=== PATIENT | female | born 1995 | race Caucasian/White ===

== ENCOUNTER 2024-10-06 20:35 | Emergency (ER) | payer MEDICAID, SELFPAY ==
[2024-10-06 20:37] VITALS: BMI 34.4
[2024-10-06 21:05] VITALS: BP 117/84; PULSE 64; RESP 18; TEMP 36.7; O2SAT 98
--- NOTE | 2024-10-06 21:08 | EDRME_ITS ---
Rapid Medical Screening Exam RME Arrival date/time: 10/06/24 20:35 Chief Complaint: Chest Pain Time Seen by Provider: 10/06/24 21:03 Vital signs: Vital Signs Temperature 98.1 F 10/06/24 21:05 Pulse Rate 64 10/06/24 21:05 Respiratory Rate 18 10/06/24 21:05 Blood Pressure 117/84 10/06/24 21:05 Pulse Oximetry (%) 98 10/06/24 21:05 Oxygen Delivery Method Room Air 10/06/24 21:05 [facility] Narrative: Chest pain, dizziness x1 hour. Also right ankle pain since yesterday
--- NOTE | 2024-10-06 21:09 | EKG_ITS ---
[facility] Test Date: 2024-10-06 Pat Name: THERESE RICKS Department: Room: - Gender: Female Green Chainer: : 1995 Requested By: Samy De Jesus Order Number: [id number] Reading MD: Samy De Jesus Measurements Intervals [place] Rate: 62 P: 30 OK: 166 QRS: 47 QRSD: 104 T: 25 QT: 349 QTc: 357 Interpretive Statements SINUS RHYTHM LOW QRS VOLTAGE IN PRECORDIAL LEADS [QRS DEFLECTION < 1.0 mV IN CHEST LEADS] POSSIBLE ANTERIOR MYOCARDIAL INFARCTION , PROBABLY OLD [30 ms Q WAVE IN V3/V4, OR R < 0.2 mV IN V4] No previous ECG available for comparison /store/S0/[id number]/ecg/[id number]
--- NOTE | 2024-10-06 21:09 | XR_ITS ---
EXAMINATION: Ankle, right 3 views . Technique: Ankle AP, oblique, lateral 3 views Date and time of exam: October 06, 2024 2137 hours INDICATIONS: Twisting injury to the ankle today, ankle pain. FINDINGS: Acute fracture base fifth metatarsal, no significant displacement IMPRESSION: Acute fracture base fifth metatarsal
--- NOTE | 2024-10-06 21:09 | XR_ITS ---
Examination: PA chest single view TECHNIQUE: Upright PA chest single view Date and time: October 06, 2024 2130 hours INDICATIONS: Shortness of breath chest pressure beginning 2 days ago. FINDINGS: Normal heart size Obscuration detail left hemidiaphragm consistent with early pneumonia Right lung clear external osseous structures intact IMPRESSION: Suspicious for early left base pneumonia
[2024-10-06 21:37] LABS: Collection Type, Urine Clean Catch
[2024-10-06 21:56] LABS: Basophils # (Auto) 0.1 Thou/mm3 (0.0-0.2); Basophils % (Auto) 1 % (0-2.5); Eosinophils # (Auto) 0.2 Thou/mm3 (0.0-0.5); Eosinophils % (Auto) 3 % (0-10); Hematocrit 35.7 % (36.0-46.0); Hemoglobin 12.4 g/dL (12.0-16.0); Immature Granulocytes % (Auto) 0 % (0-0); Immature Granulocytes Auto 0.02 Thou/mm3 (0.00-0.00); Lymphocytes # (Auto) 2.2 Thou/mm3 (1.0-4.8); Lymphocytes % (Auto) 34 % (10-50); Mean Corpuscular HGB Conc 34.7 g/dl (31.0-37.0); Mean Corpuscular Hemoglobin 33.7 pg (25.0-35.0); Mean Corpuscular Volume 97 fL (80-100); Monocytes # (Auto) 0.3 Thou/mm3 (0.0-0.8); Monocytes % (Auto) 5 % (0-12); Neutrophils # (Auto) 3.6 Thou/mm3 (1.8-7.7); Neutrophils % (Auto) 57 % (37-80); Nucleated Red Blood Cell % 0 /100 WBC (0); Platelet Count 194 Thou/mm3 (140-440); Red Blood Count 3.68 Miln/mm3 (4.00-5.20); White Blood Count 6.4 Thou/mm3 (3.6-11.0)
[2024-10-06 21:59] LABS: B-Type Natriuretic Peptide < 20 pg/mL (0-100)
[2024-10-06 22:01] LABS: HCG Qualitative,Urine Negative
[2024-10-06 22:01] LABS: Alanine Aminotransferase 29 U/L (10-49); Albumin, Serum 4.7 gm/dL (3.5-5.0); Albumin/Globulin Ratio 1.6 (1.2-2.2); Alkaline Phosphatase 52 U/L (46-116); Anion Gap 9 (7-16); Aspartate Amino Transferase 78 U/L (0-34); BUN/Creatinine Ratio 7 Ratio (12-20); Bilirubin,Total 1.2 mg/dL (0.3-1.2); Blood Urea Nitrogen 10 mg/dL (9-23); Calcium 8.7 mg/dL (8.3-10.6); Calcium (Corrected) 8.7 mg/dL (8.5-10.1); Carbon Dioxide 26.6 mMol/L (20.0-31.0); Chloride 104 mMol/L (98-107); Creatinine (Component) 1.4 mg/dL (0.6-1.3); Estimated Creatinine Clearance 73.8 mL/min (>60); Globulin 2.9 gm/dL (2.3-3.5); Glucose 102 mg/dL (74-106); Osmolality,Calculated 278 (275-295); Potassium 3.5 mMol/L (3.4-5.1); Sodium 140 mMol/L (136-145); Total Protein 7.6 gm/dL (5.7-8.2); Troponin I < 0.002 ng/mL (0.0-0.045); eGFR 52 See Note
[2024-10-06 22:04] LABS: Bacteria,Urine Rare; Bilirubin,Urine Negative (Negative); Blood,Urine 3+ (Negative); Clarity,Urine Clear (Clear/Hazy); Color,Urine Colorless (Lt Yel-Yel); Glucose, Urine Negative (Negative); Ketones,Urine Negative (Negative); Leukocyte Esterase,Urine Positive (Negative); Nitrite,Urine Negative (Negative); PH,Urine 6.5 (5.0-7.0); Protein,Urine Negative (Neg - Trace); RBC,Urine 10 /hpf (0-3); Specific Gravity,Urine 1.008 (1.001-1.035); Squamous Epithelial Cell,Urine 8 /hpf (0-5); Urobilinogen,Urine Negative mg/dL (0.0-1.0); WBC,Urine 57 /hpf (0-5)
[2024-10-06 22:06] LABS: Amphetamine/Methamp Scrn,U Negative (Negative); Barbiturate Screen,Urine Negative (Negative); Benzodiazepines Screen,Urine Negative (Negative); Benzoylecgonine Screen, Ur Negative (Negative); Fentanyl Screen,Urine Negative (Negative); Opiate Screen,Urine Negative (Negative); THC Screen,Urine Negative (Negative)
[2024-10-07 00:21] LABS: Troponin I < 0.002 ng/mL (0.0-0.045)
--- NOTE | 2024-10-07 00:33 | EDNOTE_ITS ---
ED Chest Pain RME/HPI General Chief Complaint: Chest Pain Stated Complaint: CHEST PAIN X 1 HOUR Time Seen by Provider: 10/06/24 21:03 Arrival date/time: 10/06/24 20:35 RME / HPI RME / HPI narrative: Chest pain, dizziness x1 hour. Also right ankle pain since yesterday Dr. Dunham?s Main ED Evaluation: 29yo female with a history of hypotension, anemia presents to the ED for complaints of dizziness and chest pain x 1 hour [employer]. Patient states she started feeling dizzy and lightheaded, reporting she developed chest pain, was mumbling, and felt impending doom, so she came in for evaluation. Patient also complains of having right foot pain since yesterday after she tripped and fell over her children's toys. Patient denies any shortness of breath, fever, chills, headache, neck pain, abdominal pain or any other associated symptoms. Patient notes she went to [facility] yesterday after she fell, but states they did not perform x-rays due to the parking enforcement technician not being there. Related Data Home Medications ?Medication ?Instructions ?Recorded ?Confirmed frzpednf-vhk-Jh-FA 1 mg 1 tab PO QDAY 2 07/19/22 tablet Previous Rx's ?Medication ?Instructions ?Recorded docusate sodium 100 mg capsule 100 mg PO BID #60 caps 07/20/22 (Colace) ibuprofen 800 mg tablet 800 mg PO Q6H PRN pain #90 t abs 07/20/22 lanolin 50 % topical ointment 1 applic topical TID PRN skin 07/20/22 irritation #15 tubes nitrofurantoin 100 mg PO BID Urinary tract 10/07/24 monohydrate/macrocrystals 100 mg infection 7 days #14 caps capsule (Macrobid) Allergies Allergy/AdvReac Type Severity Reaction Status Date / Time amoxicillin Allergy Intermediate Hives Verified 07/19/22 20:49 Penicillins Allergy Intermediate Hives Verified 07/19/22 20:49 Review of Systems Review of Systems Systems Reviewed: All systems reviewed, normal except as documented Past Medical History Past Medical History NEUROLOGIC: Negative Neurological Disorders CARDIAC: Negative Cardiac Disorders or Congestive Heart Failure RESPIRATORY: Negative Chronic Obstructive Pulmonary Disease (COPD) GASTROINTESTINAL: Positive Gastrointestinal Disorders and Obesity; Negative Hepatitis or Colorectal Cancer GENITOURINARY: Negative Genitourinary Disorders, Renal Disease or Prostate Cancer REPRODUCTIVE: Positive Gonorrhea and Previous Pregnancies; Negative Breast Cancer, Endometriosis, Pelvic Inflammatory Disease, Testicular Cancer or Uterine Prolapse MUSCULOSKELETAL: Positive Fractures (right wrist); Negative Musculoskeletal Disorders or Bone Cancer ENDOCRINE: Negative Endocrine Disorders, Diabetes Mellitus Type 1 or Diabetes Mellitus Type 2 HEMATOLOGIC: Positive Blood Disorders and Anemia PSYCHO/SOCIAL: Positive Depression (2019) OTHER HISTORY: Positive Chicken Pox; Negative Hospitalization, Autoimmune Disease, Down Syndrome, Developmental Delay, Shingles, Falls, Blood Transfusions, Blood Transfusion Reaction, Anesthesia Reactions, Organ Transplant, Chemotherapy, Radiation Therapy, Hyperbaric Therapy, MRSA, VRSA, Vancomycin-Resistant Enterococci, Human Immunodeficiency Virus (HIV), Measles, Mumps, Rubella (Gibraltarian Measles), Pertussis, Clostridium Difficile, Cancer, Breast Cancer, Cervical Cancer, Colorectal Cancer, Lung Cancer, Ovarian Cancer, Prostate Cancer or Testicular Cancer Family History FAMILY HISTORY: Positive Family Cardiac Disorders (mother-HTN. grandmother-heart surgery), Family Gastrointestinal Problems (mother-gallbladder), Family Cancer (mother, father, grandfather) and Family Surgery (grandmother, mother); Negative Family Psychiatric Problems, Family Respiratory Disorders or Family Anesthesia Reaction Surgical History SURGICAL: Negative Section or Organ Transplant Social History SMOKING STATUS: Never smoker ED Exam Narrative Physical exam: GENERAL APPEARANCE: alert and oriented x 4, well-developed, well-nourished, no acute distress VITALS: All vitals were reviewed and the pulse ox is 98% on room air, which is normal according to my interpretation. HEENT: Normocephalic, atraumatic; pupils equal, round, reactive to light; EOMI; mucous membranes pink, moist; oropharynx clear NECK: Supple LUNGS: CTABL; no wheezes, no rales, no rhonchi HEART: Regular rate, regular rhythm; normal S1, S2; no murmurs ABDOMEN: non distended; normal BS; soft, no tenderness, no guarding, no rebound; no masses, no organomegaly, no hernia BACK: no CVA tenderness EXTREMITIES: swelling and ecchymosis to the right foot and ankle NEUROLOGIC: awake; alert and oriented x4; cranial nerves II-XII grossly intact; no focal sensory or motor deficits PSYCHIATRIC: appropriate mood and affect SKIN: warm, dry, normal color; no rashes Course Quality Measures none Orders Category Date Time Status EKG (ED ONLY) *Do not use* NOW Care 10/06/24 21:10 Completed Miscellaneous Nursing Order NOW Care 10/07/24 00:36 Active CXR [XR chest 1V] Stat Exams 10/06/24 21:09 Completed EKG (ED Only) Stat Exams 10/06/24 21:09 Draft XR ankle comp RT min 3V Stat Exams 10/06/24 21:09 Completed BNP [B-Type Natriuretic Peptide] Stat Lab 10/06/24 21:27 Completed CBC Stat Lab 10/06/24 21:27 Completed CMP [Comprehensive Metabolic Panel] Stat Lab 10/06/24 21:27 Completed Drug Screen,Urine Stat Lab 10/06/24 21:29 Completed HCG Qualitative,Urine Stat Lab 10/06/24 21: Completed Troponin I Stat Lab 10/06/24 21:27 Completed Troponin I Stat Lab 10/06/24 23:47 Completed UA [Urinalysis] Stat Lab 10/06/24 21:29 Completed Vital Signs Vital signs: Vital Signs Temperature 98.1 F 10/06/24 21:05 Pulse Rate 64 10/06/24 21:05 Respiratory Rate 18 10/06/24 21:05 Blood Pressure 117/84 10/06/24 21:05 Pulse Oximetry (%) 98 10/06/24 21:05 Oxygen Delivery Method Room Air 10/06/24 21:05 Chest Pain MDM Narrative MDM Narrative:: Scribe Attestation: 10/07/24 Dena Mora am scribing for and in the presence of Dr. Dunham. Discussed results with the patient. Patient was offered something for anxiety, which she declined. Walking boot ordered due to the patient's right fifth metatarsal fracture. I sent a prescription for Macrobid to the patient's pharmacy due to her UTI. Patient is stable to be discharged home. Patient data External records reviewed:: [facility] previous records (Per EMR review, patient has no previous ED visits or admissions to this facility.) Clinical information provided by:: patient Social determinants that could affect healthcare access:: none Patient has the following chronic illnesses:: none How is presenting disease/condition affected by chronic disease/condition?: no chronic disease Evaluation data The following diagnostics were reviewed and interpreted by me:: lab results and radiology exam(s) Lab and/or radiology exams considered but not ordered:: none Interpretation Summary: CBC is normal, CMP is normal, BNP is normal, Initial and Repeat Troponins are normal, HCG is negative, UA is positive for a UTI, UDS is negative, according to my interpretation. CXR shows normal cardiac silhouette, normal sharp diaphragmatic edge, no infiltrates, normal costophrenic angles, according to my interpretation. EKG done at 2119, NSR, rate of 62, normal axis, no ectopy, no acute ischemia, according to my interpretation. [place] [facility] Report Signed Patient: THERESE RICKS [facility]. Record#: [id number] Birthdate: 1995 Age/Sex: 29 / F Location: [facility] Attending Dr: Ordering Physician: Samy De Jesus PA-C Date of Service: 10/06/24 Procedure(s): XR ankle comp RT min 3V Accession Number(s): [id number] cc: Cj Smith MD; Samy De Jesus PA-C~ EXAMINATION: Ankle, right 3 views . Technique: Ankle AP, oblique, lateral 3 views Date and time of exam: October 06, 2024 2137 hours INDICATIONS: Twisting injury to the ankle today, ankle pain. FINDINGS: Acute fracture base fifth metatarsal, no significant displacement IMPRESSION: Acute fracture base fifth metatarsal Dictated By: Cj Smith MD Signed By: <Electronically signed by Cj Smith MD in OV> 10/06/24 2146 Medications / Prescriptions Medications or Prescriptions considered but not ordered:: none Medication administrations:: see above, if any Consultations Consultation(s) initiated? (list below): No Diagnosis Chest Pain Differential Diagnosis: other (foot fracture, foot dislocation, contusion, abrasion, STEMI, NSTEMI, anxiety reaction, chest wall pain) Most likely diagnosis given after review of the tests above:: see clinical impression below Admission Indicated Admission indicated?: not indicated Admission Request Was there a request for admission?: No Disposition Plan Disposition Plan: Discharge Discharge Attestation Discharge Attestation: The patient and all family members were given an opportunity to ask questions and understood the discharge instructions. Discharge instructions specifically effects, indications for sooner follow up or return to the emergency department, and the expected course of current diagnosis. Patient condition: Stable Discharge Plan Plan Patient Disposition: HOME (Self Care) Discharge Disposition comment: Stable for discharge home Patient condition on transfer: Stable Prescriptions/Referrals Prescriptions/Med Rec: New nitrofurantoin monohyd/m-cryst [Macrobid] 100 mg capsule 100 mg PO BID 7 Days Qty: 14 0RF Rx Instructions: must administer with a meal/food No Action ibuprofen 800 mg tablet 800 mg PO Q6H MDD 4 PRN (Reason: pain) Qty: 90 0RF docusate sodium [Colace] 100 mg capsule 100 mg PO BID Qty: 60 0RF lanolin 50 % ointment 1 applic topical TID PRN (Reason: skin irritation) Qty: 15 0RF txhumlxr-oox-Xr-FA 1 mg Tablet 1 tab PO QDAY Referrals: [facility] [Provider Group] - In 1 week Genaro Varghese MD [Primary Care Provider] - In 1 week Problem List Clinical Impression: [place] fracture, Urinary tract infection, Anxiety reaction Patient/Caregiver Discharge Instructions Discharge Activity: activity as tolerated Education Materials: Urinary Tract Infections in Women, ED Anxiety Reaction, ED Fracture, Foot Additional Instructions: Please return to the emergency department if you have any worsening or any further medical problems and we will help you. Otherwise you should follow-up with your primary care doctor or in the [facility] care clinic within the next several days. There are antibiotics waiting for you at your pharmacy. Please take 1 pill twice per day for the full 7 days until they are completely gone. Print Language: Kyrgyz Stand Alone Forms: [employer] Award Info., Patient Portal Info Letter
== END 2024-10-07 01:35 | disposition home or self-care (01) ==
PROVIDERS: Physician Assistant; Emergency Provider Emergency Medicine; PCP Family Medicine
DX: S92.351A Displaced fracture of fifth metatarsal bone, right foot, initial encounter for closed fracture (principal); W01.0XXA Fall on same level from slipping, tripping and stumbling without subsequent striking against object, initial encounter; N39.0 Urinary tract infection, site not specified; F41.1 Generalized anxiety disorder; R07.9 Chest pain, unspecified
CPT/HCPCS: 36415; 71045; 73610; 80053; 80307; 81001; 81025; 83880; 84484; 85025; 93005; 99283

== ENCOUNTER 2025-02-28 20:33 | Emergency (ER) | payer MEDICAID, SELFPAY ==
[2025-02-28 20:37] VITALS: BMI 34.0
[2025-02-28 20:43] VITALS: BP 124/78; PULSE 61; PULSE 88; RESP 18; RESP 20; TEMP 36.8; O2SAT 100; O2SAT 97
--- NOTE | 2025-02-28 21:21 | EDNOTE_ITS ---
ED Anxiety RME/HPI General Chief Complaint: Anxiety Stated Complaint: NEAR SYNCOPE/SOB Time Seen by Provider: 02/28/25 21:20 Arrival date/time: 02/28/25 20:33 RME / HPI RME / HPI narrative: Dr. Perez?s Main ED Evaluation: 29yo female with a history of anemia, hypothyroidism (off of medications) BIBA from home presenting with lightheadedness/dizziness, shortness of breath, and intermittent palpitations throughout the day. Also noted left temporoparietal headache with radiation to the left shoulder. No chest pain, frequency, urgency, or dysuria. LMP is current. PMH includes anemia, hypothyroidism, hypotension, elevated cholesterol, anxiety, depression. PSH includes D&C. Patient vapes, but no alcohol or illicit drug use. Related Data Home Medications ?Medication ?Instructions ?Recorded ?Confirmed fgipmriv-buj-Bp-FA 1 mg 1 tab PO QDAY 2 2 07/19/22 tablet Previous Rx's ?Medication ?Instructions ?Recorded docusate sodium 100 mg capsule 100 mg PO BID #60 caps 07/20/22 (Colace) ibuprofen 800 mg tablet 800 mg PO Q6H PRN pain #90 t abs 07/20/22 lanolin 50 % topical ointment 1 applic topical TID PRN skin 07/20/22 irritation #15 tubes Allergies Allergy/AdvReac Type Severity Reaction Status Date / Time amoxicillin Allergy Intermediate Hives Verified 07/19/22 20:49 Penicillins Allergy Intermediate Hives Verified 07/19/22 20:49 Review of Systems Review of Systems Systems Reviewed: All systems reviewed, normal except as documented Past Medical History Past Medical History NEUROLOGIC: Negative Neurological Disorders CARDIAC: Negative Cardiac Disorders or Congestive Heart Failure RESPIRATORY: Negative Chronic Obstructive Pulmonary Disease (COPD) GASTROINTESTINAL: Positive Gastrointestinal Disorders and Obesity; Negative Hepatitis or Colorectal Cancer GENITOURINARY: Negative Genitourinary Disorders, Renal Disease or Prostate Cancer REPRODUCTIVE: Positive Gonorrhea and Previous Pregnancies; Negative Breast Cancer, Endometriosis, Pelvic Inflammatory Disease, Testicular Cancer or Uterine Prolapse MUSCULOSKELETAL: Positive Fractures; Negative Musculoskeletal Disorders or Bone Cancer ENDOCRINE: Negative Endocrine Disorders, Diabetes Mellitus Type 1 or Diabetes Mellitus Type 2 HEMATOLOGIC: Positive Blood Disorders and Anemia PSYCHO/SOCIAL: Positive Anxiety and Depression OTHER HISTORY: Positive Chicken Pox; Negative Hospitalization, Autoimmune Disease, Down Syndrome, Developmental Delay, Shingles, Falls, Blood Transfusions, Blood Transfusion Reaction, Anesthesia Reactions, Organ Transplant, Chemotherapy, Radiation Therapy, Hyperbaric Therapy, MRSA, VRSA, Vancomycin-Resistant Enterococci, Human Immunodeficiency Virus (HIV), Measles, Mumps, Rubella (Hungarian Measles), P ertussis, Clostridium Difficile, Cancer, Breast Cancer, Cervical Cancer, Colorectal Cancer, Lung Cancer, Ovarian Cancer, Prostate Cancer or Testicular Cancer Family History FAMILY HISTORY: Positive Family Cardiac Disorders, Family Gastrointestinal Problems, Family Cancer and Family Surgery; Negative Family Psychiatric Problems, Family Respiratory Disorders or Family Anesthesia Reaction Surgical History SURGICAL: Negative Section or Organ Transplant Social History SMOKING STATUS: Never smoker ED Exam Narrative Physical exam: GENERAL APPEARANCE: alert and oriented x 4, well-developed, well-nourished, nontoxic, no acute distress VITALS: All vitals were reviewed and the pulse ox is 100% on room air, which is normal according to my interpretation. HEENT: Normocephalic, atraumatic; pupils equal, round, reactive to light; EOMI; mucous membranes pink, moist; oropharynx clear NECK: Supple LUNGS: CTABL; no wheezes, no rales, no rhonchi HEART: Regular rate, regular rhythm; normal S1, S2; no murmurs ABDOMEN: non distended; normal BS; soft, no tenderness, no guarding BACK: no CVA tenderness EXTREMITIES: atraumatic; no edema NEUROLOGIC: awake; alert and oriented x4; cranial nerves II-XII grossly intact; no focal sensory or motor deficits PSYCHIATRIC: appropriate mood and affect SKIN: warm, dry, slightly pale; no rashes Course Quality Measures none Vital Signs Vital signs: Vital Signs Temperature 98.3 F 02/28/25 20:43 Pulse Rate 61 02/28/25 20:43 Respiratory Rate 18 02/28/25 20:43 Blood Pressure 124/78 02/28/25 20:43 Pulse Oximetry (%) 100 02/28/25 20:43 Oxygen Delivery Method Room Air 02/28/25 20:43 Anxiety MDM Narrative MDM Narrative: Scribe Attestation: 02/28/25 Dena Mora am scribing for and in the presence of Dr. Perez. 29yo female with a history of anemia, hypothyroidism (off of medications) BIBA from home presenting with lightheadedness/dizziness, shortness of breath, and intermittent palpitations throughout the day. Also noted left temporoparietal headache with radiation to the left shoulder. Please see PE findings. Laboratory markers including CBC and chemistries were unremarkable. CXR unremarkable. EKG demonstrates sinus bradycardia without any ST-T changes. Patient was observed for an extended period of time and remained stable. Will recommend f/u with PMD for cardiology referral for consideration of remote heart monitoring. Precautionary instructions issued. Patient data External records reviewed:: [facility] previous records (Per chart review, patient was seen here on 10/07/24 for anxiety.) and EMS form Clinical information provided by:: patient Social determinants that could affect healthcare access:: mental health Patient has the following chronic illnesses:: anxiety How is presenting disease/condition affected by chronic disease/condition?: caused by Evaluation data The following diagnostics were reviewed and interpreted by me:: lab results, radiology exam(s) and EKG tracing(s) Lab and/or radiology exams considered but not ordered:: none Interpretation Summary: EKG done at 2317, sinus bradycardia, rate of 47, no ectopy or high grade AV block, low voltage across the precordium, no acute ST or T pathological changes, according to my interpretation. [place] [facility] Report Signed Patient: THERESE RICKS [facility]. Record#: [id number] Birthdate: 1995 Age/Sex: 29 / F Location: [facility] Attending Dr: Ordering Physician: Palomo Jones DO Date of Service: 02/28/25 Procedure(s): XR chest 1V portable Accession Number(s): [id number] cc: Palomo Jones DO; Genaro Varghese MD; Cj Smith MD~ EXAMINATION: AP chest single view TECHNIQUE: AP portable upright chest single view Date and time: February 28, 2025, 2152 hours, comparison October 06, 2024 INDICATION: Weakness shortness of breath syncope today FINDINGS: Normal heart size The lungs are clear. The osseous structures are intact IMPRESSION: No active disease Dictated By: Cj Smith MD Signed By: <Electronically signed by Cj Smith MD in OV> 02/28/25 2210 Medications / Prescriptions Medications or Prescriptions considered but not ordered:: none Medication administrations:: none Consultations Consultation(s) initiated? (list below): No Diagnosis Differential diagnosis anxiety: other (anemia, dehydration, electrolyte abnormality, arrhythmia) Most likely diagnosis given after review of the tests above:: see clinical impression below Admission Indicated Admission indicated?: not indicated Admission Request Was there a request for admission?: No Disposition Plan Disposition Plan: Discharge Discharge Attestation Discharge Attestation: The patient and all family members were given an opportunity to ask questions and understood the discharge instructions. Discharge instructions specifically effects, indications for sooner follow up or return to the emergency department, and the expected course of current diagnosis. Patient condition: Stable Discharge Plan Plan Patient Disposition: HOME (Self Care) Discharge Disposition comment: Stable Prescriptions/Referrals Prescriptions/Med Rec: No Action ibuprofen 800 mg tablet 800 mg PO Q6H MDD 4 PRN (Reason: pain) Qty: 90 0RF docusate sodium [Colace] 100 mg capsule 100 mg PO BID Qty: 60 0RF lanolin 50 % ointment 1 applic topical TID PRN (Reason: skin irritation) Qty: 15 0RF tqwynrxr-pqt-Ep-FA 1 mg Tablet 1 tab PO QDAY Referrals: Genaro Varghese MD [Primary Care Provider, Family Practice] - In 1 week Problem List Clinical Impression: Heart palpitations Impression comment: Palpitations Patient/Caregiver Discharge Instructions Discharge Activity: activity as tolerated Education Materials: ED Palpitations Additional Instructions: Increase fluids. Avoid excessive caffeine, stimulants and follow up w/ [employer]ty Insurance Claim Adjuster for consideration of remote heart monitoring Print Language: Sinhala Stand Alone Forms: [employer] Award Info., Patient Portal Info Letter
--- NOTE | 2025-02-28 21:30 | XR_ITS ---
EXAMINATION: AP chest single view TECHNIQUE: AP portable upright chest single view Date and time: February 28, 2025, 2152 hours, comparison October 06, 2024 INDICATION: Weakness shortness of breath syncope today FINDINGS: Normal heart size The lungs are clear. The osseous structures are intact IMPRESSION: No active disease
--- NOTE | 2025-02-28 21:30 | EKG_ITS ---
[facility] Test Date: 2025-02-28 Pat Name: THERESE RICKS Department: Room: - Gender: Female Lemon Picker: : [id number] Requested By: Palomo Arzola Order Number: [id number] Reading MD: Palomo Arzola Measurements Intervals [place] Rate: 47 P: 55 MT: 176 QRS: 65 QRSD: 106 T: 45 QT: 416 QTc: 370 Interpretive Statements SINUS BRADYCARDIA LOW QRS VOLTAGE IN PRECORDIAL LEADS [QRS DEFLECTION < 1.0 mV IN CHEST LEADS] INCOMPLETE RIGHT BUNDLE BRANCH BLOCK [90+ ms QRS DURATION, TERMINAL R IN V1/V2, 40+ ms S IN I/aVL/V4/V5/V6] NONSPECIFIC T-WAVE ABNORMALITY Compared to ECG 10/06/2024 21:19:26 Incomplete right bundle-branch block now present T-wave abnormality now present Sinus rhythm no longer present Myocardial infarct finding no longer present /store/S0/[id number]
[2025-02-28 22:06] LABS: Collection Type, Urine Clean Catch
[2025-02-28 22:07] LABS: Basophils # (Auto) 0.1 Thou/mm3 (0.0-0.2); Basophils % (Auto) 1 % (0-2.5); Eosinophils # (Auto) 0.2 Thou/mm3 (0.0-0.5); Eosinophils % (Auto) 3 % (0-10); Hematocrit 33.9 % (36.0-46.0); Hemoglobin 11.9 g/dL (12.0-16.0); Immature Granulocytes Auto 0.02 Thou/mm3 (0.00-0.00); Lymphocytes # (Auto) 1.8 Thou/mm3 (1.0-4.8); Lymphocytes % (Auto) 32 % (10-50); Mean Corpuscular HGB Conc 35.1 g/dl (31.0-37.0); Mean Corpuscular Hemoglobin 33.9 pg (25.0-35.0); Mean Corpuscular Volume 97 fL (80-100); Monocytes # (Auto) 0.4 Thou/mm3 (0.0-0.8); Monocytes % (Auto) 6 % (0-12); Neutrophils # (Auto) 3.3 Thou/mm3 (1.8-7.7); Neutrophils % (Auto) 57 % (37-80); Nucleated Red Blood Cell # 0.00 Thou/mm3 (0.00-0.00); Nucleated Red Blood Cell % 0 /100 WBC (0); Platelet Count 180 Thou/mm3 (140-440); RDW Standard Deviation 45.1 fL (36.4-46.3); Red Blood Count 3.51 Miln/mm3 (4.00-5.20); White Blood Count 5.8 Thou/mm3 (3.6-11.0)
[2025-02-28 22:13] LABS: Bacteria,Urine Rare; Bilirubin,Urine Negative (Negative); Blood,Urine 3+ (Negative); Budding Yeast,Urine Present; Clarity,Urine Turbid (Clear/Hazy); Color,Urine Colorless (Lt Yel-Yel); Glucose, Urine Negative (Negative); Ketones,Urine Negative (Negative); Leukocyte Esterase,Urine Positive (Negative); Nitrite,Urine Negative (Negative); PH,Urine 6.5 (5.0-7.0); Protein,Urine Negative (Neg - Trace); RBC,Urine 10 /hpf (0-3); Specific Gravity,Urine 1.008 (1.001-1.035); Squamous Epithelial Cell,Urine 10 /hpf (0-5); Urobilinogen,Urine Negative mg/dL (0.0-1.0); WBC,Urine 33 /hpf (0-5)
[2025-02-28 22:17] LABS: Amphetamine/Methamp Scrn,U Negative (Negative); Barbiturate Screen,Urine Negative (Negative); Benzodiazepines Screen,Urine Negative (Negative); Benzoylecgonine Screen, Ur Negative (Negative); Fentanyl Screen,Urine Negative (Negative); Opiate Screen,Urine Negative (Negative); THC Screen,Urine Negative (Negative)
[2025-02-28] MEDS: SODIUM CHLORIDE 0.9% 1000 ML 1,000 ML 999 ML IV (22:33)
[2025-02-28 22:38] LABS: AFP Non-Pregnant 2.50 ng/mL (<8.10)
[2025-02-28 22:40] LABS: Alanine Aminotransferase 22 U/L (10-49); Albumin, Serum 4.7 gm/dL (3.5-5.0); Albumin/Globulin Ratio 3.1 (1.2-2.2); Alkaline Phosphatase 41 U/L (46-116); Anion Gap 10 (7-16); Aspartate Amino Transferase 54 U/L (0-34); BUN/Creatinine Ratio 7 Ratio (12-20); Beta HCG,Quantitative < 0 mIU/mL (<5.0); Bilirubin,Total 1.2 mg/dL (0.3-1.2); Blood Urea Nitrogen 8 mg/dL (9-23); Calcium 9.6 mg/dL (8.3-10.6); Calcium (Corrected) 9.6 mg/dL (8.5-10.1); Carbon Dioxide 26.7 mMol/L (20.0-31.0); Chloride 104 mMol/L (98-107); Creatinine (Component) 1.2 mg/dL (0.6-1.3); Estimated Creatinine Clearance 85.5 mL/min (>60); Globulin 1.5 gm/dL (2.3-3.5); Glucose 93 mg/dL (74-106); Magnesium 2.0 mg/dL (1.6-2.6); Osmolality,Calculated 279 (275-295); Potassium 3.4 mMol/L (3.4-5.1); Sodium 141 mMol/L (136-145); Total Protein 6.2 gm/dL (5.7-8.2); Troponin I < 0.002 ng/mL (0.0-0.045); eGFR > 60 See Note
[2025-02-28 23:25] VITALS: BP 107/72; BP 93/76; PULSE 48; PULSE 53; PULSE 58
[2025-03-01 00:09] VITALS: BP 99/73; PULSE 49; RESP 18; O2SAT 98
== END 2025-03-01 00:11 | disposition home or self-care (01) ==
PROVIDERS: Emergency Provider Emergency Medicine; PCP Family Medicine
DX: R55 Syncope and collapse (principal); R00.2 Palpitations; R53.1 Weakness; R06.02 Shortness of breath; R00.1 Bradycardia, unspecified; I45.10 Unspecified right bundle-branch block
CPT/HCPCS: 36415; 71045; 80053; 80307; 81001; 82105; 83735; 84484; 84702; 85025; 93005; 96360; 99284; J7030